=== PATIENT | male | born 1985 | race Asian ===

== ENCOUNTER 2016-09-17 07:51 | Emergency (ER) | payer OTHER ==
[2016-09-17 08:38] VITALS: BP 127/75; PULSE 74; TEMP 98; BMI 25.0
[2016-09-17] MEDS ORDERED: KETOROLAC TROMETHAMINE 60 MG/2 ML VIAL IM ONE (08:50)
--- NOTE | 2016-09-17 08:54 | PDOC ---
History of Present Illness - General Chief Complaint: Pain Stated Complaint: SHOULDER PAIN Time Seen by Provider: 09/17/16 08:33 History Source: Patient Exam Limitations: No Limitations - History of Present Illness Initial Comments: 09/17/16 08:49 c/o right shoulder pain x 1 weeks. Hurt at Gym 1 week ago with heavy lifting , rested for 2 days and returned to gym re- injuring same arm. Took 400mg Ibuprofen with no resolve 09/17/16 08:58 09/17/16 08:58 Occurred: reports: last week Severity: reports: mild, moderate Past History - Travel Traveled outside of the country in the last 30 days: No Close contact w/someone who was outside of country & ill: No - Past Medical History Allergies/Adverse Reactions: Allergies Allergy/AdvReac Type Severity Reaction Status Date / Time No Known Allergies Allergy Verified 09/17/16 08:35 Home Medications: Ambulatory Orders Naproxen [Naprosyn -] 500 mg PO BID #14 tablet 09/17/16 Other medical history: DENIES. - Psycho/Social/Smoking Cessation Hx Suicidal Ideation: No Smoking History: Never smoked Review of Systems - Review of Systems Able to Perform ROS?: Yes Is the patient limited [place] proficient: Yes Constitutional: Yes: See HPI. No: Symptoms Reported, Fever HEENTM: Yes: See HPI. No: Symptoms Reported Respiratory: Yes: See HPI. No: Symptoms reported, Cough Musculoskeletal: Yes: Symptoms Reported, See HPI, Back Pain, Joint Pain (right shoulder ), Joint Swelling, Muscle Weakness (right arm ) Integumentary: Yes: See HPI. No: Symptoms Reported Neurological: Yes: See HPI. No: Symptoms reported, Headache, Paresthesia All Other Systems: Reviewed and Negative *Physical Exam - Vital Signs Last Vital Signs Temp Pulse Resp BP Pulse Ox 98 F 74 19 127/75 97 09/17/16 08:35 09/17/16 08:35 09/17/16 08:35 09/17/16 08:35 09/17/16 08:35 - Physical Exam General Appearance: Yes: Nourished, Appropriately Dressed, Apparent Distress HEENT: positive: [place], Normal ENT Inspection, TMs Normal, Pharynx Normal Neck: positive: Supple. negative: Tender, Lymphadenopathy (R), Lymphadenopathy (L) Respiratory/Chest: positive: Lungs Clear, Normal Breath Sounds Gastrointestinal/Abdominal: positive: Soft Musculoskeletal: positive: Normal Inspection, Decreased Range of Motion. negative: Vertebral Tenderness Extremity: positive: Normal Capillary Refill, Normal Inspection. negative: Normal Range of Motion (limited due to tenderness/ swelling . Unable to abduct without tenderness past 90, able to forward flex but posterior flexion also reproduces pain. 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 Will treat with sling, rest, NSAIDs and have follow-up with orthopedist *DC/Admit/Observation/Transfer Diagnosis at time of Disposition: Sprain of shoulder, right Qualifiers: Encounter type: initial encounter Shoulder sprain type: unspecified sprain Qualified Code(s): S43.401A - Unspecified sprain of right shoulder joint, initial encounter - Discharge Dispostion Disposition: HOME Condition at time of disposition: Stable Admit: No - Prescriptions Prescriptions: Naproxen [Naprosyn -] 500 mg PO BID #14 tablet - Referrals Referrals: Ciaran Gaitan MD [Staff Physician] - - Patient Instructions Additional Instructions: Rest, ice to area on and off for 15 minutes 4-6 times a day Avoid heavy lifting or exercise until pain and swelling is resolved or until further directed Keep area highly elevated to reduce swelling Use splints/Santos wrap as directed Followup with orthopedist in one to 2 days if not improving, if significantly improved may wait one week for followup with orthopedist May use Naprosyn 1 -500mgmg tablets every 8 hours as needed for pain - Post Discharge Activity Work/School Note: Back to Work
[2016-09-17] MEDS ORDERED: KETOROLAC TROMETHAMINE 60 MG/2 ML VIAL ONE (08:55)
== END 2016-09-17 09:43 | disposition home or self-care (01) ==
LOC: JERFT 07:51 → JER 07:51 → JERFT 09:43
PROC: 2W3AX1Z Immobilization of Right Upper Arm using Splint (ICD-10-PCS; principal; 2016-09-17)
DX: S43.401A Unspecified sprain of right shoulder joint, initial encounter (principal); W22.01XA Walked into wall, initial encounter; Y93.89 Activity, other specified; Y92.9 Unspecified place or not applicable
CPT/HCPCS: 73030-TC-RT; 99281-25